=== PATIENT | female | born 1990 | race Caucasian/White ===

== ENCOUNTER 2025-02-13 11:28 | Outpatient (OUT) | payer OTHER, SELFPAY ==
[2025-02-13 11:57] LABS: Hematocrit 40.7 % (36.0-48.0); Hemoglobin 13.2 g/dL (12.0-16.0); Immature Granulocytes Abs Auto 0.02 10^3/uL (0.00-0.03); Immature Granulocytes Pct Auto 0.3 % (0.0-0.5); Lymphocytes Absolute Auto 1.9 10^3/uL (1.2-3.8); Mean Corpuscular HGB Conc 32.4 g/dL (29.9-35.2); Mean Corpuscular Hemoglobin 25.4 pg (26.7-34.0); Mean Corpuscular Volume 78.4 fL (81.0-99.0); Platelet Count 382 10^3/uL (150-450); Red Blood Count 5.19 10^6/uL (4.20-5.40); White Blood Count 6.9 10^3/uL (4.0-11.0)
[2025-02-13 12:30] LABS: Alanine Aminotransferase 27 U/L (14-59); Albumin Globulin Ratio 0.8; Albumin Level 3.6 g/dL (3.4-5.0); Alkaline Phosphatase 86 U/L (46-116); Anion Gap 11.0; Aspartate Amino Transferase 17 U/L (15-37); Blood Urea Nitrogen 12.0 mg/dL (7.0-18.0); Calcium 8.8 mg/dL (8.5-10.1); Carbon Dioxide 27.8 mmol/L (21.0-32.0); Chloride 103 mmol/L (98-107); Cholesterol 170 mg/dL (<=200); Estimated GFR (African America >60 (>=60 mL/min/1.73m^2); Estimated GFR (Non-African Ame >60 (>=60 mL/min/1.73m^2); Free T3 2.90 pg/mL (2.18-3.98); Globulin 4.4 g/dL; Glucose 85 mg/dL (74-106); HDL Cholesterol 54 mg/dL (40-60); Potassium 3.8 mmol/L (3.5-5.1); Sodium 138 mmol/L (136-145); Thyroid Stimulating Hormone 1.886 uIU/mL (0.358-3.740); Total Protein 8.0 g/dL (6.4-8.2); Triglycerides 110 mg/dL (<=150); VLDL CHOLESTEROL 22.0 mg/dL
[2025-02-13 12:36] LABS: Iron 38.0 ug/dL (50.0-170.0)
== END 2025-02-13 11:29 | disposition home or self-care (01) ==
PROVIDERS: PCP Nurse Practitioner Family; Visit Provider Nurse Practitioner Family
DX: Z00.00 Encounter for general adult medical examination without abnormal findings (principal)
CPT/HCPCS: 36415; 80053; 80061; 82306; 83036; 83525; 83540; 84436; 84443; 84481; 85025